=== PATIENT | female | born 1970 | race African-American/Black ===

== ENCOUNTER 2017-11-25 21:02 | Emergency (ER) | payer SELFPAY ==
[~2017-11-25] VITALS: Ht 162.6 cm; Wt 77.1 kg
[2017-11-25] MEDS ORDERED: CLONIDINE HCL 0.1 MG TAB PO ONE (21:45)
[2017-11-25] MEDS ORDERED: ASPIRIN 325 MG TAB PO ONE (21:45)
[2017-11-25] MEDS ORDERED: DIOVAN160 MG PO (22:04)
[2017-11-25] MEDS ORDERED: LEVOTHYROXINE88 MCG PO (22:04)
[2017-11-25] MEDS ORDERED: CARVEDILOL12.5 MG PO (22:04)
[2017-11-25] MEDS ORDERED: CHLORTHALIDONE25 MG PO (22:04)
[2017-11-25 23:04] VITALS: BP 167/102
== END 2017-11-25 23:06 | disposition left against medical advice (07) ==
LOC: FSED 21:02
DX: R07.89 Other chest pain (principal); R00.2 Palpitations; R42 Dizziness and giddiness; I10 Essential (primary) hypertension
CPT/HCPCS: 71046; 80048; 82553; 83880; 84484; 85025; 93005; 99283